=== PATIENT | female | born 1960 | race African-American/Black ===

== ENCOUNTER 2016-03-31 13:33 | Emergency (ER) | payer OTHER | END 2016-03-31 15:56 | disposition home or self-care (01) | DX: S30.0XXA Contusion of lower back and pelvis, initial encounter (principal); W00.0XXA Fall on same level due to ice and snow, initial encounter; Y92.481 Parking lot as the place of occurrence of the external cause; R03.0 Elevated blood-pressure reading, without diagnosis of hypertension ==

== ENCOUNTER 2020-09-18 14:34 | Outpatient (CLI) | payer OTHER ==
--- NOTE | 2020-09-19 13:48 | Mammography Report ---
BILATERAL DIGITAL SCREENING MAMMOGRAM 3D/2D: 09/18/2020 CLINICAL: Routine screening. Comparison is made to exams dated: 11/08/2018 mammogram, 10/30/2017 mammogram, 04/29/2016 mammogram, 03/22 mammogram, and 03/02/2014 mammogram - [facility]. The tissue of both breasts i s heterogeneously dense. This may lower the sensitivity of mammography. No significant masses, calcifications, or other findings are seen in either breast. There has been no significant interval change. IMPRESSION: NEGATIVE There is no mammographic evidence of malignancy. A 1 year screening mammogram is recommended. This exam was interpreted at Station ID: [id number]. NOTE: For mammograms, a report in lay terms will be sent to the patient. Approximately 15% of breast malignancies will not be visualized mammographically. In the management of a palpable breast mass, a negative mammogram must not discourage biopsy of a clinically suspicious lesion. Electronically Signed By: Kurt gallagher/patito:09/18/2020 17:42:05 ACR BI-RADS Category 1: Negative 3341F PARENCHYMAL PATTERN: (D) - The breast(s) demonstrate(s) heterogeneously dense fibroglandular parmari villalobos. BI-RADS CATEGORY: (1) - 1 RECOMMENDATION: (ANNUAL) - Recommend routine annual screening mammography. [id number] 1 year screening LATERALITY: (B)
== END 2020-09-18 14:35 | disposition home or self-care (01) ==
LOC: DI 14:34
DX: Z12.31 Encounter for screening mammogram for malignant neoplasm of breast (principal)

== ENCOUNTER 2023-09-21 15:05 | Outpatient (CLI) | payer OTHER ==
--- NOTE | 2023-09-21 18:36 | Ultrasound Report ---
PROCEDURE: Pelvic Limited INDICATIONS: L INGUINAL PAIN/ BULGE TECHNIQUE: Real-time transabdominal scanning was performed of both groins. Color Doppler ultrasound was also uti lized. COMPARISON: None. FINDINGS: Scanning was performed of both groins. No findings of hernia can be seen on either side, including wi th Valsalva maneuver. IMPRESSION: Negative for hernia involving either groin Reviewed by: Feliberto Leon MD on 09/21/2023 5:34 PM AKROXANNE Approved by: Feliberto Leon MD on 09/21/2023 5:34 PM AKDT Station ID: [id number]
== END 2023-09-21 15:06 | disposition home or self-care (01) ==
LOC: DI 15:05
PROVIDERS: ATTEND Family Medicine
DX: R10.2 Pelvic and perineal pain (principal); L30.8 Other specified dermatitis

== ENCOUNTER 2024-03-15 14:11 | Observation (INO) ==
[2024-03-15 14:52] LABS: BASOPHILS % (AUTO) 0.4 %; EOSINOPHILS # (AUTO) 0.3 10^3/uL (0.0-0.7); EOSINOPHILS % (AUTO) 2.7 %; HCT - HEMATOCRIT 41.5 % (37.0-47.0); HGB - HEMOGLOBIN 13.7 g/dL (12.0-16.0); LYMPHOCYTES # (AUTO) 3.8 10^3/uL (1.5-3.5); LYMPHOCYTES % (AUTO) 40.5 %; MEAN CORPUSCULAR HEMOGLOBIN 26.5 pg (27.0-31.0); MEAN CORPUSCULAR VOLUME 80.3 fL (81.0-99.0); MEAN PLATELET VOLUME 8.4 fL (7.9-10.8); MONOCYTES # (AUTO) 0.5 10^3/uL (0.0-1.0); MONOCYTES % (AUTO) 5.7 %; NEUTROPHILS # (AUTO) 4.8 10^3/uL (1.5-6.6); NEUTROPHILS % (AUTO) 50.5 %; PLT - PLATELET COUNT 283 10^3/uL (130-450); RED BLOOD COUNT 5.17 10^6/uL (4.20-5.40); RED CELL DISTRIBUTION WIDTH 13.6 % (12.0-15.0); WHITE BLOOD COUNT 9.4 x10^3/uL (4.8-10.8)
[2024-03-15 15:05] LABS: ALBUMIN 4.7 g/dL (3.2-5.5); ALBUMIN/GLOBULIN RATIO 1.6 (1.0-2.2); BILIRUBIN,TOTAL 0.5 mg/dL (0.2-1.0); CALCIUM 10.1 mg/dL (8.5-10.3); CREATININE 1.1 mg/dL (0.6-1.3); POTASSIUM 3.3 mmol/L (3.5-4.5); TOTAL PROTEIN 7.7 g/dL (6.4-8.9)
[2024-03-15 15:12] LABS: TROPONIN I HIGH SENSITIVITY 2.7 ng/L (2.3-14.8)
--- NOTE | 2024-03-15 15:21 | XRAY Report ---
PROCEDURE: XR Chest 1V INDICATIONS: chest pain TECHNIQUE: One view of the chest was acquired. COMPARISON: None. FINDINGS: Surgical changes and devices: None. Lungs and pleura: No pleural effusions or pneumothorax. No consolidation. Mediastinum: Mediastinal contours appear normal. Heart size is normal. Bones and chest wall: No suspicious bony lesions. Overlying soft tissues appear unremarkable. IMPRESSION: No acute cardiopulmonary process. Reviewed by: Andriy Plummer MD on 03/15/2024 3:20 PM PST Approved by: Andriy Plummer MD on 03/15/2024 3:20 PM PST Station ID: [id number]
[2024-03-15] MEDS: ONDANSETRON 4 MG/2 ML VIAL IVP STA (15:28)
[2024-03-15] MEDS: SODIUM CHLORIDE 0.9% 1,000 ML IV STA ×2 (15:33→18:49)
[2024-03-15 15:43] LABS: B. PARAPERTUSSIS- RESP PCR PAN NOT DETECTED; B. PERTUSSIS- RESP PCR PANEL NOT DETECTED; C. PNEUMONIAE- RESP PCR PANEL NOT DETECTED; CORONAVIRUS 229E-RESP PCR NOT DETECTED; CORONAVIRUS HKU1-RESP PCR NOT DETECTED; CORONAVIRUS NL63-RESP PCR NOT DETECTED; CORONAVIRUS OC43-RESP PCR NOT DETECTED; HUMAN METAPNEUMOVIRUS NOT DETECTED; INFLUENZA A- RESP PCR PANEL NOT DETECTED; INFLUENZA B - RESP PCR PANEL NOT DETECTED; M. PNEUMONIAE- RESP PCR PANEL NOT DETECTED; PARAINFLUENZA VIRUS 1 NOT DETECTED; PARAINFLUENZA VIRUS 2 NOT DETECTED; PARAINFLUENZA VIRUS 4 NOT DETECTED; RHINOVIRUS/ENTEROVIRUS NOT DETECTED; RSV- RESP PCR PANEL NOT DETECTED; SARS-CoV-2 -RESP PCR PANEL NOT DETECTED
[2024-03-15 17:11] LABS: ALBUMIN/GLOBULIN RATIO 1.5 (1.0-2.2); BILIRUBIN,TOTAL 0.5 mg/dL (0.2-1.0); CALCIUM 8.8 mg/dL (8.5-10.3); POTASSIUM 4.1 mmol/L (3.5-4.5); TOTAL PROTEIN 6.6 g/dL (6.4-8.9)
[2024-03-15 17:17] LABS: TROPONIN I HIGH SENSITIVITY 3.3 ng/L (2.3-14.8)
[2024-03-15 17:18] LABS: BILIRUBIN,URINE NEGATIVE (NEGATIVE); GLUCOSE, URINE (UA) >=1000 mg/dL (NEGATIVE); KETONES,URINE (UA) NEGATIVE (NEGATIVE); LEUKOCYTE ESTERASE, URINE NEGATIVE (NEGATIVE); NITRITE,URINE NEGATIVE (NEGATIVE); OCCULT BLOOD,URINE SMALL (NEGATIVE); PROTEIN,URINE NEGATIVE (NEGATIVE); UROBILINOGEN,URINE 0.2 (NORMAL) E.U./dL (NORMAL)
[2024-03-15 17:19] LABS: CLARITY,URINE CLEAR (CLEAR)
[2024-03-15 17:32] LABS: WBC,URINE 0-3 /HPF (0-5)
[2024-03-15 17:33] LABS: BACTERIA,URINE Few /HPF (None Seen); SQUAMOUS EPITHELIAL CELL,UR NONE SEEN (<= Few)
--- NOTE | 2024-03-15 18:31 | ED Physician Documentation ---
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 She came to the emergency department with her and immediately after. While in the ER she had an episode of vomiting. She notes she was feeling fine yesterday and prior to this. She notes generalized chills shaking and persistent feelings of lightheadedness. Her chest pain did resolve after an episode of vomiting. No recent fevers she has been eating and drinking normally. No recent changes in diet. She has no upper abdominal pain or lower abdominal pain. She was having normal bowel movements this morning. She has history of hypertension, hyperlipidemia, history of type 2 diabetes. No history of coronary artery disease. No history of smoking. Meds/Allgy Home Medications Ambulatory Orders Medication Instructions Recorded Confirmed metformin 500 mg tablet 500 mg PO DAILY 03/31/16 03/15/24 empagliflozin 25 mg tablet 25 mg PO ONCE 03/10/24 03/15/24 (Jardiance) lisinopril 10 mg tablet 10 mg PO ONCE 03/10/24 03/15/24 rosuvastatin 10 mg tablet 10 mg PO ONCE 03/10/24 03/15/24 Allergies Allergies Allergy/AdvReac Type Severity Reaction Status Date / Time No Known Drug Allergies Allergy Verified 03/15/24 14:24 [facility] Social History Social History Smoking Status: Never smoker Relationship: Do you feel safe in your home environment?: Yes Suffered physical, verbal, emotional, or financial abuse?: No Exam Constitutional normal general appearance HENMT normocephalic and head/scalp atraumatic Eyes PERRL, EOMs intact bilaterally and conjunctivae normal Neck/C-Spine visual inspection normal and trachea midline Lymph no lymphadenopathy noted Chest inspection of chest normal Respiratory breath sounds equal bilaterally and normal respiratory effort Cardiovascular normal heart rate noted Gastrointestinal abdomen normal to inspection No reproducible abdominal pain, abdomen is soft without rebound or guarding. Genitourinary no CVA tenderness Back/Pelvis spine normal to inspection Extremities normal to inspection Skin skin color normal, no rash and no lesions Results Vitals Vitals: Vital Signs - 24 hr 03/15/24 14:25 03/15/24 14:31 03/15/24 16:31 Temperature 36.3 C L 36.0 C L Temperature Source Temporal Artery Scan Temporal Artery Scan Pulse Rate 85 83 90 Respiratory Rate 18 19 19 Blood Pressure 149/87 H 137/83 H 137/77 H O2 Saturation 100 99 97 O2 Source Room air Room air Room air Pain Intensity 0 0 0 03/15/24 18:00 Temperature Temperature Source Pulse Rate 79 Respiratory Rate Blood Pressure 136/78 H O2 Saturation 96 O2 Source Room air Pain Intensity 0 Oxygen O2 Source Room air Labs Labs: Laboratory Tests 03/15/24 03/15/24 03/15/24 14:45 14:47 16:45 WBC 9.4 RBC 5.17 Hgb 13.7 Hct 41.5 MCV 80.3 L MCH 26.5 L MCHC 33.0 RDW 13.6 Plt Count 283 MPV 8.4 Neut # (Auto) 4.8 Lymph # (Auto) 3.8 H [place] # (Auto) 0.5 Eos # (Auto) 0.3 Baso # (Auto) 0.0 Absolute Nucleated RBC 0.00 Nucleated RBC % 0.0 Sodium 127 L 128 L Potassium 3.3 L 4.1 Chloride 92 L 96 L Carbon Dioxide 23 24 Anion Gap 12.0 8.0 BUN 18 17 Creatinine 1.1 1.0 Estimated GFR (MDRD) 61 L 68 L Glucose 134 H 120 H Calcium 10.1 8.8 Total Bilirubin 0.5 0.5 AST 18 15 ALT 21 17 Alkaline Phosphatase 63 50 Troponin I High Sens 2.7 3.3 Total Protein 7.7 6.6 Albumin 4.7 4.0 Globulin 3.0 2.6 Albumin/Globulin Ratio 1.6 1.5 Lipase 43 Urine Color Urine Clarity Urine pH Ur Specific [place] Urine Protein Urine Glucose (UA) Urine Ketones Urine Occult Blood Urine Nitrite Urine Bilirubin Urine Urobilinogen Ur Leukocyte Esterase Urine RBC Urine WBC Ur Squamous Epith Cells Urine Bacteria Ur Microscopic Review Urine Culture Comments Nasal Adenovirus (PCR) NOT DETECTED Nasal B. parapertussis DNA (PCR) NOT DETECTED Nasal Coronavir 229E PCR NOT DETECTED Nasal Coronavir HKU1 PCR NOT DETECTED Nasal Coronavir NL63 PCR NOT DETECTED Nasal Coronavir OC43 PCR NOT DETECTED Nasal Enterovir/Rhinovir PCR NOT DETECTED Nasal Influenza B PCR NOT DETECTED Nasal Influenza A PCR NOT DETECTED Nasal Parainfluen 1 PCR NOT DETECTED Nasal Parainfluen 2 PCR NOT DETECTED Nasal Parainfluen 3 PCR NOT DETECTED Nasal Parainfluen 4 PCR NOT DETECTED Nasal RSV (PCR) NOT DETECTED Nasal B.pertussis DNA PCR NOT DETECTED Nasal C.pneumoniae (PCR) NOT DETECTED Jeffrey Human Metapneumo PCR NOT DETECTED Nasal M.pneumoniae (PCR) NOT DETECTED Nasal SARS-CoV-2 (PCR) NOT DETECTED 03/15/24 17:10 WBC RBC Hgb Hct MCV MCH MCHC RDW Plt Count MPV Neut # (Auto) Lymph # (Auto) [place] # (Auto) Eos # (Auto) Baso # (Auto) Absolute Nucleated RBC Nucleated RBC % Sodium Potassium Chloride Carbon Dioxide Anion Gap BUN Creatinine Estimated GFR (MDRD) Glucose Calcium Total Bilirubin AST ALT Alkaline Phosphatase Troponin I High Sens Total Protein Albumin Globulin Albumin/Globulin Ratio Lipase Urine Color YELLOW Urine Clarity CLEAR Urine pH 6.0 Ur Specific [place] 1.010 Urine Protein NEGATIVE Urine Glucose (UA) >=1000 H Urine Ketones NEGATIVE Urine Occult Blood SMALL H Urine Nitrite NEGATIVE Urine Bilirubin NEGATIVE Urine Urobilinogen 0.2 (NORMAL) Ur Leukocyte Esterase NEGATIVE Urine RBC 6-10 H Urine WBC 0-3 Ur Squamous Epith Cells NONE SEEN Urine Bacteria Few Ur Microscopic Review INDICATED Urine Culture Comments NOT INDICATED Nasal Adenovirus (PCR) Nasal B. parapertussis DNA (PCR) Nasal Coronavir 229E PCR Nasal Coronavir HKU1 PCR Nasal Coronavir NL63 PCR Nasal Coronavir OC43 PCR Nasal Enterovir/Rhinovir PCR Nasal Influenza B PCR Nasal Influenza A PCR Nasal Parainfluen 1 PCR Nasal Parainfluen 2 PCR Nasal Parainfluen 3 PCR Nasal Parainfluen 4 PCR Nasal RSV (PCR) Nasal B.pertussis DNA PCR Nasal C.pneumoniae (PCR) Jeffrey Human Metapneumo PCR Nasal M.pneumoniae (PCR) Nasal SARS-CoV-2 (PCR) PD Medical Decision Making ED course Complexity details: reviewed old records and reviewed results ED course: Patient is a 63-year-old female presenting to the emergency department with episode of lightheadedness chest pain nausea and vomiting shortly prior to arrival she is feeling slightly better on arrival but has persistent chills and possibly rigors on arrival. She is normotensive afebrile nontachycardic saturating well on room air. Chest pain resolved after an episode of nausea and vomiting here in the emergency department. EKG on arrival shows normal sinus rhythm with some borderline T wave abnormalities no previous EKG here in the ED to compare. Labs in the emergency department show no significant leukocytosis hemoglobin stable. Troponin is within normal range. Additionally CMP shows significant hyponatremia at 127. Unsure of patient's baseline however no medications or severe nausea vomiting diarrhea that could explain this at this time. While pending repeat troponin here in the emergency department will repeat CMP as well after 1 L of fluids given. Chest x-ray shows no acute cardiopulmonary findings.UA shows no signs of infection. Discussed with patient reassuring workup however given significant hyponatremia and repeat CMP shows persistent hyponatremia at 128 will try to admit here to the emergency department. Pateint agreeable with admission for persistent hyponatremia and persistent Lightheadedness despite eating drinking and receiving 1 and half liters of fluids here in the emergency department. Tr shannan and EKG continue to show no ST changes or elevation in troponin concerning for ACS at this time she continues to deny any chest pain at this time and is agreeable with admission for hyponatremia. Discussed Case with cyber incident responder Scott MCMILLAN for persistent hyponatremia. Discharge Plan Discharge Patient Disposition: 68 [facility] DC/Xfer Condition: Stable Clinical Impression: Acute hyponatremia, Episodic lightheadedness Prescriptions: No Action metformin 500 MG tablet 500 mg PO DAILY lisinopril 10 mg tablet 10 mg PO ONCE rosuvastatin 10 mg tablet 10 mg PO ONCE Jardiance 25 mg tablet 25 mg PO ONCE Print Language: [place] Verdean
--- NOTE | 2024-03-15 19:27 | HISTORY & PHYSICAL EXAMINATION ---
Chief Complaint Chief Complaint Chief Complaint: Chest pain History of Present Illness Admitted From Admitted From:: Home, With History Obtained From Records Reviewed: EMR History obtained from: Patient interview Exam Limitations: None History of Present Illness HPI Comment/Other: 63-year-old female PMH significant for hypertension and type 2 diabetes on metformin presented to the ED with shortness of breath and chest pain starting shortly prior to arrival while she was at work. She started having severe shortness of breath, chest pain, lightheadedness, dizziness. In the ER, she had a episode of vomiting. She denies fever, chills, diarrhea. Her chest pain resolved after an episode of vomiting. She reports she has been drinking a lot of water. In the ER, troponin was found to be negative x 2. Chest pain is resolved. She was noted to have a sodium of 127, so IVF was initiated by the ER team and hospitalist was contacted for observation for acute hyponatremia Meds/Allgy Home Medications Ambulatory Orders Medication Instructions Recorded Confirmed metformin 500 mg tablet 500 mg PO DAILY 03/31/16 03/15/24 empagliflozin 25 mg tablet 25 mg PO ONCE 03/10/24 03/15/24 (Jardiance) lisinopril 10 mg tablet 10 mg PO ONCE 03/10/24 03/15/24 rosuvastatin 10 mg tablet 10 mg PO ONCE 03/10/24 03/15/24 Allergies Allergies Allergy/AdvReac Type Severity Reaction Status Date / Time No Known Drug Allergies Allergy Verified 03/15/24 14:24 [facility] Medical History Medical History (Updated 03/15/24 @ 19:30 by Scott Glover DNP) History of diabetes mellitus Social History Social History Smoking Status: Never smoker Relationship: Level: Independent Do you feel safe in your home environment?: Yes Suffered physical, verbal, emotional, or financial abuse?: No Review of Systems Status of ROS: 10 or more systems reviewed and unremarkable except as noted in history and below Constitutional Denies: Fever or Chills Cardiovascular Reports: chest pain and lightheadedness; Denies: Irregular heart rate or shortness of breath with exertion Respiratory Denies: Shortness of breath or Cough Gastrointestinal Denies: Abdominal pain Genitourinary Denies: Painful urination Neurological Reports: General weakness; Denies: Focal weakness Exam Constitutional normal general appearance and no apparent distress HENMT normocephalic and head/scalp atraumatic Eyes PERRL Neck/C-Spine visual inspection normal Lymph no lymphadenopathy noted Chest inspection of chest normal Respiratory breath sounds equal bilaterally Cardiovascular normal heart rate noted and regular rhythm noted Gastrointestinal abdomen normal to inspection Genitourinary bladder normal to palpation Extremities normal to inspection, normal to palpation and no tenderness Neurology recreational programs director II-XII intact and GCS 15 Psychiatry oriented x3 Skin skin color normal Conclusion/Plan Problem List (1) Acute hyponatremia: Plan: 2 L NS bolus ordered by ER provider Bolus in progress at time of my interview Recheck sodium when this bolus is done and then every 4 if still under 130 This could be dilutional, patient states she does her best to drink a lot of water (2) Epigastric pain: Plan: Described to me as epigastric pain HS Troponin negative x 2 Resolved after vomiting GI cocktail, Toradol x 1 (3) History of diabetes mellitus: Plan: Her home med list includes metformin and Jardiance, but patient states she only takes metformin UA with greater than 1000 glucose No acidosis on chemistry. If acidosis develops, consideration must be made for euglycemic DKA SSI A1c, chemistry in a.m. Plan Placed in observation Full code Her is her surrogate decision maker Lab Results Lab results reviewed: Yes 03/15/24 14:47 03/15/24 16:45
[2024-03-15] MEDS ORDERED: GI COCKTAIL 120 ML BOTTLE PO SCH (20:00)
[2024-03-15] MEDS ORDERED: SODIUM CHLORIDE FLUSH 0.9% 10 ML SYRINGE IVP PRN (20:11)
[2024-03-15] MEDS ORDERED: ONDANSETRON ODT 4 MG TABLET TL PRN (20:11)
[2024-03-15] MEDS ORDERED: ACETAMINOPHEN 325 MG TABLET PO PRN (20:11)
[2024-03-15] MEDS ORDERED: ONDANSETRON 4 MG/2 ML VIAL IVP PRN (20:11)
[2024-03-15] MEDS: KETOROLAC 15 MG/ML VIAL IVP STA (20:26)
[2024-03-15] MEDS ORDERED: GI COCKTAIL 120 ML BOTTLE PO PRN (21:00)
[2024-03-15] MEDS: SODIUM CHLORIDE 0.9% 1,000 ML IV SCH (22:14)
[2024-03-16] MEDS: SODIUM CHLORIDE FLUSH 0.9% 10 ML SYRINGE IVP SCH (03:53)
[2024-03-16 06:03] LABS: BASOPHILS % (AUTO) 0.4 %; EOSINOPHILS # (AUTO) 0.2 10^3/uL (0.0-0.7); EOSINOPHILS % (AUTO) 2.7 %; HCT - HEMATOCRIT 36.8 % (37.0-47.0); HGB - HEMOGLOBIN 12.1 g/dL (12.0-16.0); LYMPHOCYTES # (AUTO) 2.4 10^3/uL (1.5-3.5); MEAN CORPUSCULAR HEMOGLOBIN 26.6 pg (27.0-31.0); MEAN CORPUSCULAR HGB CONC 32.9 g/dL (32.0-36.0); MEAN CORPUSCULAR VOLUME 80.9 fL (81.0-99.0); MEAN PLATELET VOLUME 8.5 fL (7.9-10.8); MONOCYTES # (AUTO) 0.6 10^3/uL (0.0-1.0); MONOCYTES % (AUTO) 8.9 %; NEUTROPHILS # (AUTO) 3.5 10^3/uL (1.5-6.6); NEUTROPHILS % (AUTO) 51.9 %; PLT - PLATELET COUNT 254 10^3/uL (130-450); RED BLOOD COUNT 4.55 10^6/uL (4.20-5.40); RED CELL DISTRIBUTION WIDTH 13.9 % (12.0-15.0); WHITE BLOOD COUNT 6.7 x10^3/uL (4.8-10.8)
[2024-03-16 06:17] LABS: CALCIUM 9.1 mg/dL (8.5-10.3); POTASSIUM 3.9 mmol/L (3.5-4.5)
[2024-03-16 08:11] VITALS: BP 134/70; TEMP 97.7; O2SAT 96
[2024-03-16] MEDS: ENOXAPARIN 40 MG/0.4 ML SYRINGE SUBQ SCH (08:28)
--- NOTE | 2024-03-16 10:37 | Discharge Summary ---
"Discharge Summary Admit Date: 03/15/24 Discharge Date: 03/16/24 Discharging Provider: Samina Weiss PA-C Primary Care Provider: Phil Wilson DO Code Status: Attempt Resuscitation DIAGNOSES Discharge Diagnoses with Status of Each Condition: Acute hyponatremia, resolved Epigastric pain, resolved History of diabetes HPI History of Present Illness: 63-year-old female PMH significant for hypertension and type 2 diabetes on metformin presented to the ED with shortness of breath and chest pain starting shortly prior to arrival while she was at work. She started having severe shortness of breath, chest pain, lightheadedness, dizziness. In the ER, she had a episode of vomiting. She denies fever, chills, diarrhea. Her chest pain resolved after an episode of vomiting. She reports she has been drinking a lot of water. In the ER, troponin was found to be negative x 2. Chest pain is resolved. She was noted to have a sodium of 127, so IVF was initiated by the ER team and hospitalist was contacted for observation for acute hyponatremia CONSULTS | PROCEDURES Procedures: Chest x-ray: No acute cardiopulmonary process. HOSPITAL COURSE Hospital Course: (1) Acute hyponatremia: Plan: She was drinking very large amounts of water at home, because she thought this was good for her. Her hyponatremia corrected rather quickly with some fluid restriction and admin of 1 L NS. I have recommended that she limit her free water intake to 64oz daily and have suggested some low sugar, low calorie electrolye options to her. Laboratory Tests 03/15/24 03/15/24 03/15/24 14:47 16:45 21:08 Sodium 127 L 128 L 130 L 03/16/24 05:35 Sodium 139 (2) Epigastric pain: Plan: Resolved after vomiting GI cocktail, Toradol x 1 did not recure (3) History of diabetes mellitus: Plan: Her home med list includes metformin and Jardiance, but patient states she only takes metformin recommended that she continue her home meds. Laboratory Tests 03/15/24 03/15/24 03/16/24 14:47 16:45 05:35 Glucose 134 H 120 H 115 H . ALLERGIES Allergies Allergy/AdvReac Type Severity Reaction Status Date / Time No Known Drug Allergies Allergy Verified 03/15/24 14:24 MEDICATIONS Ambulatory Orders Medication Instructions Recorded Confirmed metformin 500 mg tablet 500 mg PO DAILY 03/31/16 03/15/24 empagliflozin 25 mg tablet 25 mg PO ONCE 03/10/24 03/15/24 (Jardiance) lisinopril 10 mg tablet 10 mg PO ONCE 03/10/24 03/15/24 rosuvastatin 10 mg tablet 10 mg PO ONCE 03/10/24 03/15/24 LABS 03/16/24 05:35 03/16/24 05:35 Discharge Plan Discharge Patient Disposition: Home, Self Care Condition: Stable Prescriptions: Continued metformin 500 MG tablet 500 mg PO DAILY lisinopril 10 mg tablet 10 mg PO ONCE rosuvastatin 10 mg tablet 10 mg PO ONCE Jardiance 25 mg tablet 25 mg PO ONCE Activity Restrictions/Additional Instructions: Out of work, return to work on 03/21/2024. Diet: Diabetic Interventions: Belongings Inventory Last Done: 03/15/24 20:50 Discharge Last Done: 03/16/24 11:17 Discharge Checklist - Nursing Last Done: 03/16/24 11:17 Health Concerns: You are a 63-year-old lady with diabetes and high blood pressure. You came into the hospital because you were not feeling well. You had heartburn and vomiting. When you came in your sodium was low at 127, normal is 1 35-1 45. This rapidly corrected with IV fluids. Your potassium was also a bit low at 3.3, normal is 3.5-4.5. Today her potassium is 3.9. I think that you are drinking a little bit too much water. I would recommend that you not drink excessive amounts of water. 8-8 ounce glasses or 64 ounces a day would be the recommended amount. I have provided you with a handout about a hydration solution without sweeteners called liquid IV. If you want to drink more water than the 64 ounces a day this might be a good solution for you. It is available at most pharmacies, [employer], as well as [employer]. When you go home continue your home medication regimen. It is important that you follow-up with your primary care provider in 7 to 10 days for a recheck of your sodium and potassium levels. I feel confident that if you limit your water intake to 64 ounces a day you will not experience low sodium. Care Plan Goals: Stay home from work this week and rest Follow a diet with a regular, normal amount of salt in it. Do continue to follow a low carbohydrate diabetic diet. Assessment: Take it easy this week. Follow a diabetic diet but you can have salt. Okay to go back to your normal activities this weekend. If you feel weak or dizzy you should return to the emergency department Plan of Treatment: Resume home medications Get plenty of dietary sodium Reduce water consumption to 64 ounces daily repeat labs and primary care visit in 7-10 days Print Language: Spanish Patient Instructions: Sodium Blood, Hyponatremia Dc Follow-up Care: PHIL WILSON, [Primary Care Provider] -"
== END 2024-03-16 11:22 | disposition home or self-care (01) ==
LOC: ED 14:11 → MS2 14:11
PROVIDERS: ADMIT Nurse Practitioner Acute Care; ATTEND Nurse Practitioner Acute Care
DX: R11.2 Nausea with vomiting, unspecified; Z79.84 Long term (current) use of oral hypoglycemic drugs; E87.1 Hypo-osmolality and hyponatremia; E11.9 Type 2 diabetes mellitus without complications; I10 Essential (primary) hypertension; R10.13 Epigastric pain